=== PATIENT | male | born 1935 | race Caucasian/White ===

== ENCOUNTER → 2016-04-16 | Outpatient (CLI) | payer MEDICARE, OTHER ==
[~2016-04-16] MED LIST: ASPI1TAB69 PO; HYZA50TA2 PO; LEVO50TA4 PO; METO50TA PO; PREV30CA11 PO; SYSTSOL EACH EYE
[2016-04-16 13:55] LABS: BICARBONATE 28.2 MEQ/L (21.0-32.0); POTASSIUM 3.5 MEQ/L (3.5-5.1)
== END ==
LOC: PLAB 09:08
PROVIDERS: ATTEND Family Medicine
DX: E03.9 Hypothyroidism, unspecified (principal); I10 Essential (primary) hypertension
CPT/HCPCS: 36415; 80048; 84443

== ENCOUNTER → 2016-08-13 | Outpatient (CLI) | payer MEDICARE, OTHER | LOC: PLAB 10:37 | PROVIDERS: ATTEND Urology | DX: Z85.46 Personal history of malignant neoplasm of prostate (principal) | CPT/HCPCS: 36415; 84153 ==

== ENCOUNTER → 2016-11-06 | Outpatient (CLI) | payer MEDICARE, OTHER ==
[2016-11-06 13:02] LABS: HEMATOCRIT 42.1 % (39.0-51.0); MEAN CELL VOLUME 89.8 FL (80.0-100.0); MEAN CORPUSCULAR HEMOGLOBIN 29.8 PG (27.0-34.0); MEAN CORPUSCULAR HGB CONC 33.3 % (32.0-36.0); PLATELET COUNT 281 TH/MM3 (150-450); RED BLOOD COUNT 4.69 MIL/MM3 (4.50-5.90); RED CELL DISTRIBUTION WIDTH 14.1 % (11.6-17.2); REVIEW FLAG FINAL; WHITE BLOOD COUNT 6.3 TH/MM3 (4.0-11.0)
[2016-11-06 13:21] LABS: ANION GAP 9 MEQ/L (5-15); AST (GOT) 15 U/L (15-37); BICARBONATE 25.5 MEQ/L (21.0-32.0); BLOOD UREA NITROGEN 19 MG/DL (7-18); CHLORIDE 103 MEQ/L (98-107); GLOMERULAR FILTRATION RATE 54 ML/MIN (>89); GLUCOSE,FASTING 125 MG/DL (74-99); POTASSIUM 3.5 MEQ/L (3.5-5.1); SODIUM (NA) 137 MEQ/L (136-145)
[2016-11-06 13:30] LABS: ALKALINE PHOSPHATASE 51 U/L (45-117); ALT (GPT) 26 U/L (12-78); FREE T4 1.15 NG/DL (0.76-1.46); HDL CHOLESTEROL 34.2 MG/DL (40.0-60.0); LDL CHOLESTEROL 108 MG/DL (0-99); LDL CHOLESTEROL DIRECT 129 MG/DL (0-99); TOTAL BILIRUBIN ADULT 0.6 MG/DL (0.2-1.0)
[2016-11-06 17:56] LABS: HEMOGLOBIN A1a 0.9 %; HEMOGLOBIN A1b 1.9 %; HEMOGLOBIN Ao 84.8 %; HEMOGLOBIN LA1C 2.2 %
== END ==
LOC: PLAB 08:02
PROVIDERS: ATTEND Family Medicine
DX: E78.2 Mixed hyperlipidemia (principal); I10 Essential (primary) hypertension; E03.8 Other specified hypothyroidism; R73.01 Impaired fasting glucose
CPT/HCPCS: 36415; 80053; 80061; 83036; 83721; 84439; 84443; 85027

== ENCOUNTER → 2017-02-19 | Outpatient (CLI) | payer MEDICARE, OTHER ==
[~2017-02-19] MED LIST changes: +ECASA81 PO; -PREV30CA11 PO; +PREV30CA36 PO
== END ==
LOC: PLAB 11:32
PROVIDERS: ATTEND Radiology Radiation Oncology
DX: C61 Malignant neoplasm of prostate (principal)
CPT/HCPCS: 36415; 84153

== ENCOUNTER → 2017-05-26 | Outpatient (CLI) | payer MEDICARE, OTHER ==
[~2017-05-26] MED LIST changes: -ASPI1TAB69 PO
[2017-05-26 10:25] LABS: HEMATOCRIT 41.8 % (39.0-51.0); HEMOGLOBIN 14.5 GM/DL (13.0-17.0); MEAN CELL VOLUME 88.1 FL (80.0-100.0); MEAN CORPUSCULAR HEMOGLOBIN 30.5 PG (27.0-34.0); MEAN CORPUSCULAR HGB CONC 34.7 % (32.0-36.0); MEAN PLATELET VOLUME 8.4 FL (7.0-11.0); PLATELET COUNT 294 TH/MM3 (150-450); RED BLOOD COUNT 4.75 MIL/MM3 (4.50-5.90); RED CELL DISTRIBUTION WIDTH 14.2 % (11.6-17.2); WHITE BLOOD COUNT 7.2 TH/MM3 (4.0-11.0)
[2017-05-26 10:41] LABS: ALBUMIN 3.7 GM/DL (3.4-5.0); AST (GOT) 19 U/L (15-37); BICARBONATE 28.8 MEQ/L (21.0-32.0); BLOOD UREA NITROGEN 19 MG/DL (7-18); CHLORIDE 104 MEQ/L (98-107); CREATININE 1.33 MG/DL (0.60-1.30); GLOMERULAR FILTRATION RATE 52 ML/MIN (>89); GLUCOSE,FASTING 98 MG/DL (74-99); SODIUM (NA) 140 MEQ/L (136-145)
[2017-05-26 10:53] LABS: ALKALINE PHOSPHATASE 52 U/L (45-117); ALT (GPT) 30 U/L (12-78); CHOLESTEROL 212 MG/DL (120-200); CHOLESTEROL/ HDL RATIO 5.28 RATIO; FREE T4 0.99 NG/DL (0.76-1.46); HDL CHOLESTEROL 40.1 MG/DL (40.0-60.0); LDL CHOLESTEROL 144 MG/DL (0-99); LDL CHOLESTEROL DIRECT 167 MG/DL (0-99); TOTAL BILIRUBIN ADULT 0.9 MG/DL (0.2-1.0); TOTAL PROTEIN 7.4 GM/DL (6.4-8.2); TRIGLYCERIDES 139 MG/DL (42-150)
[2017-05-26 17:15] LABS: HEMOGLOBIN A1C 5.6 % (4.3-6.0)
== END ==
LOC: PLAB 08:40
PROVIDERS: ATTEND Family Medicine
DX: E78.2 Mixed hyperlipidemia (principal); I10 Essential (primary) hypertension; E03.8 Other specified hypothyroidism; R73.01 Impaired fasting glucose
CPT/HCPCS: 36415; 80053; 80061; 83036; 83721; 84439; 84443; 85027

== ENCOUNTER 2017-06-24 13:08 | Inpatient (IN) | payer MEDICARE, OTHER ==
[2017-06-24] VITALS (9 sets, daily range): BP systolic 103–148; BP diastolic 53–76; PULSE 67–87; RESP 18–20; TEMP 97.7–98; O2SAT 95–97
[~2017-06-24 13:08] MED LIST changes: +IOHEXOL 350 MG/ML 100 ML BTL (for Cath Lab) OTHER ONE
[2017-06-24] MEDS ORDERED: ASPIRIN 81 MG CHEW TAB PO ONE ×2 (13:30→18:00)
[2017-06-24] MEDS ORDERED: SODIUM CHLORIDE 0.9% FLUSH 10 ML FLUSH IVF PRN (13:30)
[2017-06-24] MEDS ORDERED: HEPARIN-D5W 25,000 U/250 ML 250 ML IV PRN (13:30)
[2017-06-24] MEDS ORDERED: SODIUM CHLORID 0.9% 500 ML INJ 500 ML IV ONE (13:30)
[2017-06-24] MEDS ORDERED: NITROGLYCERIN 2% OINT 1 GM PACKET TOP ONE (13:30)
[2017-06-24] MEDS ORDERED: HEPARIN SODIUM - IV 10,000 UNITS/10 ML VIAL IV PUSH ONE (13:30)
[2017-06-24 13:36] LABS: AUTOMATED NEUTROPHIL # 7.5 TH/MM3 (1.8-7.7); BASOPHIL # 0.1 TH/MM3 (0-0.2); BASOPHIL % 0.8 % (0.0-2.0); EOSINOPHIL # 0.3 TH/MM3 (0-0.4); EOSINOPHIL % 3.3 % (0.0-4.0); HEMATOCRIT 42.4 % (39.0-51.0); HEMOGLOBIN 14.3 GM/DL (13.0-17.0); LYMPH % 17.2 % (9.0-44.0); LYMPHOCYTE # 1.7 TH/MM3 (1.0-4.8); MEAN CELL VOLUME 88.2 FL (80.0-100.0); MEAN CORPUSCULAR HEMOGLOBIN 29.7 PG (27.0-34.0); MEAN CORPUSCULAR HGB CONC 33.6 % (32.0-36.0); MEAN PLATELET VOLUME 8.4 FL (7.0-11.0); MONO % 4.8 % (0.0-8.0); MONOCYTE # 0.5 TH/MM3 (0-0.9); NEUT % 73.9 % (16.0-70.0); PLATELET COUNT 285 TH/MM3 (150-450); RED BLOOD COUNT 4.81 MIL/MM3 (4.50-5.90); RED CELL DISTRIBUTION WIDTH 13.1 % (11.6-17.2); WHITE BLOOD COUNT 10.1 TH/MM3 (4.0-11.0)
--- NOTE | 2017-06-24 13:38 | PD ---
HPI Chief Complaint: Chest Pain Time Seen by Provider: 13:22 Travel History International Travel<30 days: No Contact w/Intl Traveler<30days: No Traveled to known affect area: No History of Present Illness HPI 81-year-old male patient with history of hypertension, irregular heartbeats, carotid stenosis, presents to the ER today because he states that he had been working outside and at around noon started having substernal chest discomfort which she states feels pressure-like, and was a 7 out of 10. He states that he took a baby aspirin and the chest discomfort is now a 3 out of 10. He denies any nausea, shortness of breath, or other symptoms. He does not think that the pain radiates anywhere. He has not had similar chest pains in the past. He is a patient of Dr. Mcdonnell. Modifying Factors: None Associated Signs & Symptoms: Chest pains Risk Factors: Hypertension, irregular heartbeat PFSH Past Medical History Cerebrovascular Accident: Yes Diminished Hearing: Yes (hearing aides) Gastrointestinal Disorders: Yes (GERD) GERD: Yes Genitourinary: Yes (HEMATURIA) Hepatitis: Yes (HEP A) Hypertension: Yes Immune Disorder: No Radiation Therapy: No Sleep Apnea: Yes Ulcer: Yes Tetanus Vaccination: Unknown Influenza Vaccination: Yes (2016) Past Surgical History Cholecystectomy: Yes Prostatectomy: Yes Other Surgery: Yes (PROSTATE REMOVAL ) Social History Alcohol Use: No Tobacco Use: No Substance Use: No Allergies-Medications (Allergen,Severity, Reaction): Coded Allergies: penicillin G (Verified Allergy, Severe, CONVULSIONS, 02/23/17) codeine (Verified Allergy, Intermediate, Hallucinations, 02/23/17) Reported Meds & Prescriptions Reported Meds & Active Scripts Active Reported Aspirin DR (Aspirin) 81 Mg Tabdr 81 Mg PO DAILY Levothyroxine (Levothyroxine Sodium) 50 Mcg Tab 50 Mcg PO DAILY Prevacid (Lansoprazole) 30 Mg Capdr 1 Cap PO DAILY Hyzaar (Losartan-Hydrochlorothiazide) 50-12.5 Mg Tab 1 Tab PO BID Metoprolol Tartrate 50 Mg Tab 1 Tab PO BID Review of Systems Except as stated in HPI: all other systems reviewed are Neg Physical Exam Narrative GENERAL: Well-developed elderly male patient currently in mild distress. Awake and oriented 3. SKIN: Focused skin assessment warm/dry. HEAD: Atraumatic. Normocephalic. EYES: Pupils equal and round. No scleral icterus. No injection or drainage. ENT: No nasal bleeding or discharge. Mucous membranes pink and moist. NECK: Trachea midline. No JVD. Supple. CARDIOVASCULAR: Regular rate and rhythm. No murmur appreciated. Pulses are present and equal bilaterally. RESPIRATORY: No accessory muscle use. Clear to auscultation. Breath sounds equal bilaterally. GASTROINTESTINAL: Abdomen soft, non-tender, nondistended. Hepatic and splenic margins not palpable. MUSCULOSKELETAL: No obvious deformities. No clubbing. No cyanosis. No edema. NEUROLOGICAL: Awake and alert. No obvious cranial nerve deficits. Motor grossly within normal limits. Normal speech. PSYCHIATRIC: Appropriate mood and affect; insight and judgment normal. Data Data Last Documented VS Vital Signs Date Time Temp Pulse Resp B/P (MAP) Pulse Ox O2 Delivery O2 Flow Rate FiO2 06/24/17 13:29 96 06/24/17 13:17 97.7 87 20 148/76 (100) Orders Orders Electrocardiogram (06/24/17 13:) Ckmb (Isoenzyme) Profile (06/24/17 13:22) Complete Blood Count With Diff (06/24/17 13:22) Comprehensive Metabolic Panel (06/24/17 13:22) Magnesium (Mg) (06/24/17 13:22) Prothrombin Time / Inr (Pt) (06/24/17 13:) Act Partial Throm Time (Ptt) (06/24/17 13:22) Troponin I (06/24/17 13:22) Ecg Monitoring (06/24/17 13:22) Bilateral Bp Monitoring (06/24/17 13:22) Iv Access Insert/Monitor (06/24/17 13:22) Oximetry (06/24/17 13:22) Oxygen Administration (06/24/17 13:22) Aspirin Chew (Aspirin Chew) (06/24/17 13:30) Nitroglycerin 2% Oint (Nitroglycerin 2% (06/24/17 13:30) Sodium Chloride 0.9% Flush (Ns Flush) (06/24/17 13:30) Sodium Chlorid 0.9% 500 Ml Inj (Ns 500 M (06/24/17 13:30) Chest, Pa & Lat (06/24/17 13:22) Heparin Inj (Heparin Inj) (06/24/17 13:30) Heparin Inj (Heparin Inj) (06/24/17 19:30) Heparin Inj (Heparin Inj) (06/24/17 19:30) Heparin-D5w 25,000 U/250 Ml (Heparin-D5w (06/24/17 13:30) Act Partial Throm Time (Ptt) (06/24/17 13:28) Cbc No Diff, Includes Plts (06/24/17 13:28) Cbc No Diff, Includes Plts (06/27/17 06:00) Act Partial Throm Time (Ptt) (06/24/17 20:28) Occult Blood (Hemoccult) Stool (06/24/17 13:28) Admit Order (Ed Use Only) (06/24/17 13:28) MDM Medical Decision Making Medical Screen Exam Complete: Yes Emergency Medical Condition: Yes Medical Record Reviewed: Yes Interpretation(s) EKG shows normal sinus rhythm at a rate of [address] elevations which are concerning for possible cardiac issues in 2 and aVF. I do not see any significant ST depressions. EKG compared to the one from 2014, last on record here, and there are changes in these 2 regions. Differential Diagnosis Non-ST elevation PR versus unstable angina versus ST elevation PR versus GERD Narrative Course Patient was given aspirin in the ER, nitroglycerin, and heparin was initiated. I have attempted to call , patient's qual field manager, but was told that he is currently in a procedure, and was asked to call on-call qual field manager. Case was discussed with Dr. Cooper who states that he does not want me to call a STEMI alert, but does want the patient to be immediately sent to [facility] for catheterization. Emergency transport called. Patient admitted to his service. Going straight to [facility]. Diagnosis Primary Impression: Unstable angina Admitting Information Admitting Physician Requests: it Mitchel El MD June 24, 2017 13:38
[2017-06-24 13:46] LABS: CHLORIDE 105 MEQ/L (98-107); SODIUM (NA) 140 MEQ/L (136-145)
[2017-06-24 13:50] LABS: CALCIUM 9.1 MG/DL (8.5-10.1)
[2017-06-24 13:51] LABS: ALBUMIN 3.7 GM/DL (3.4-5.0); BICARBONATE 24.1 MEQ/L (21.0-32.0); BLOOD UREA NITROGEN 19 MG/DL (7-18); GLUCOSE,RANDOM 112 MG/DL (74-106); MAGNESIUM 2.2 MG/DL (1.5-2.5)
[2017-06-24 13:52] LABS: PROTHROMBIN TIME - PATIENT 10.6 SEC (9.8-11.6)
[2017-06-24 13:53] LABS: ALT (GPT) 33 U/L (12-78)
[2017-06-24 13:54] LABS: AST (GOT) 20 U/L (15-37); GLOMERULAR FILTRATION RATE 45 ML/MIN (>89)
[2017-06-24 13:55] LABS: TOTAL BILIRUBIN ADULT 0.7 MG/DL (0.2-1.0); TOTAL PROTEIN 7.4 GM/DL (6.4-8.2)
[2017-06-24 13:56] LABS: ALKALINE PHOSPHATASE 52 U/L (45-117)
[2017-06-24 13:59] LABS: TROPONIN I LESS THAN 0.02 NG/ML (0.02-0.05)
[2017-06-24] MEDS ORDERED: MIDAZOLAM HCL 5 MG/5 ML VIAL ONE ×3 (14:29→16:09)
[2017-06-24] MEDS ORDERED: CANGRELOR TETRASODIUM 50,000 MCG VIAL ONE (16:08)
[2017-06-24] MEDS ORDERED: TICAGRELOR 90 MG TAB PO ONE (16:27)
--- NOTE | 2017-06-24 16:46 | CATHPROC ---
[employer] HIS Report Study Information Study Number Admission Scheduled Start Study Start [id number] Jun 24 2017 1:31PM 06/24/2017 Jun 24 2017 2:20PM [place] [facility] Cardiac Catheterization Admit Source Facility Department Emergency department [facility] - Labeler Physician and Clinical Staff Initial Azar Alonzo Architectural Draftsman Trenton Granado,RN Recorder Kelly Urbano ,RT(R) Scrub Divine Ballesteros RCIS TECH2 Procedures Performed Procedure Location (Site) Vessel Name Angiogram LV LV Ventricle Coronary Angiograms LCA Left Coronary Coronary Angiograms RCA Right Coronary Drug Eluting Inflatio RCA Mid Right Coronary Drug Eluting Inflatio RCA Prox Right Coronary L Heart Cath PTCA RCA Mid Right Coronary Wire insertion Fem Art (right) Femoral Art Equipment Time Aviation Consultant Description Size Mfg Part Number Used/Scraped WIRE, BALANCE MIDDLEWEIGHT [id number] 15:08 [facility] [facility] 190CM Used 190CM *[id number] TRANSDUCER, TRUWAVE [id number] 14:22 WALLER ALATORRE * Used W/STOCKCOCK *[id number] *[id number] *[id number] 16:17 [facility] MED[facility] ANGIOSEAL, FR6 VIP FR 6 Used *[id number] 14:22 [employer] INDUSTRIES PACK, CCL CUSTOM * Used *[id number] 14:22 [employer] PACER PEN, SKIN DUAL W/ RULER * Used *[id number] 15:14 [employer] BALLOON, 2.5 X 15MM EUPHORA 15MM Used *[id number] BALLOON, 3.5 X 15MM NC [id number] 15:32 [employer]TR[employer]IC 15MM Used EUPHORA *[id number] BALLOON, 4.0 X 8MM NC [id number] 15:44 [employer] 8MM Used EUPHORA *[id number] 14:59 [employer] JL 4.0 DXTERITY CATHETER FR 5 Used *[id number] PIG ANG 145 DXTERITY [id number] 14:39 [employer]IC FR 5 Used CATHETER *[id number] 15:21 [employer] STENT, 3.0 38MM PIPE 3.0 38MM [id number] Used 15:47 [employer] STENT, 3.5 22MM PIPE 3.5 22MM [id number] 15:17 [employer] MEDICAL 30 BEREKET INDEFLATOR Used *[id number] 15:09 [employer] MEDICAL SHEATH, FR6.5 PRELUDE 11CM FR 6.5 038ACT Used *[id number] 14:57 [employer] MEDICAL WIRE, 3MMJ .035 180CM 180CM Used *[id number] 14:22 [employer] MEDICAL WIRE, 3MMJ .035 180CM 180CM Used *[id number] PROBE COVER, STERILE [id number] 14:22 [email or web address] MEDICAL * Used ULTRASOUND W/ GEL *[id number] 14:22 NAMIC MANIFOLD, 4 PORT * Used *[id number] 14:22 NAMIC TUBING, HIGH PRESSURE 48" 48" Used *[id number] 14:22 [employer] OMNIPAQUE, 350 MG, 150ML 150ML [id number] Used 16:12 [employer] OMNIPAQUE, 350 MG, 50ML 50ML [id number] Used [id number] 14:22 [employer] BLANKET,WARM AIR CCL * Used *[id number] 14:22 [employer]ICAL SHEATH, FR5 TERUMO (10CM) FR 5 Used *[id number] Equipment Model, Serial, Lot Number and Expiration Data Description Model Number Serial Number Lot Number Expiration Da te BALLOON, 3.5 X 15MM NC [id number] 03-21-2019 EUPHORA BALLOON, 4.0 X 8MM NC EUPHORA [id number] 12-12-2018 PIG ANG 145 DXTERITY CATHETER [id number] 03-18-2019 STENT, 3.0 38MM PIPE [id number] 03-20-2019 STENT, 3.5 22MM PIPE [id number] 04-02-2018 History: Allergies Allergy Reaction codeine Hallucinations Penicillin CONVULSIONS penicillin G CONVULSIONS History: Risk Factors Family History of Hypertension Dyslipidemia Previous SD Previous Heart Failure Premature CAD Yes Yes No No No Prior Valve Prior PCI Prior CABG Surgery No No No Cerebrovascular Peripheral Artery Chronic Lung On Dialysis Diabetes Disease Disease Disease No No No No No History: Other Current Smoker No Labs Hgb (g/dl) Hct (%) RBC (MIL/MM3) WBC (l/cumm) Platelets (thousands) 11.60-17.00 35.00-51.00 4.00-5.90 4.00-11.00 150.00-450.00 14.3 42.4 4.8 10.1 285 Glucose (mg/dl) BUN (mg/dl) Creatinine (mg/dl) BUN:Creatinine (1:x) 74.00-106.00 7.00-18.00 0.50-1.30 10.00-20.00 112 19 1.5 12.7 Na (meq/l) K (meq/l) 136.00-145.00 3.50-5.10 140 3.4 INR (PTT:PT) 0.90-1.10 1 Troponin I (ng/ml) 0.02-0.05 0.02 Medication Medication Total Dose (Bolus/Oral) Medication Total Dosage/Unit 1% XYLOCAINE 20 mL BRILLINTA 180 mg FENTANYL 150 mcg HEPARIN 9000 units NTG (IC) 200 mcg VERSED 12 mg Medications (Bolus/Oral) Medication Time Given Dosage/Unit Administered By Reason VERSED 06/24/2017 2:50:30 PM 1 mg Loy, Trenton 1 mg VERSED given in lab by Trenton Granado RN in Left Antecubital via Peripheral IV. Ordered by Azar Murray. 1% XYLOCAINE 06/24/2017 2:53:25 PM 20 mL Azar Cooper 20 mL 1% XYLOCAINE given in lab by Azar Cooper in Right Groin via Subcutaneous. Ordered by Azar Murray. VERSED 06/24/2017 2:58:04 PM 2 mg Loy, Trenton 2 mg VERSED given in lab by Trenton Granado RN in Left Antecubital via Peripheral IV. Ordered by Azar Murray. VERSED 06/24/2017 3:05:00 PM 2 mg Loy, Trenton 2 mg VERSED given in lab by Trenton Granado RN via Peripheral IV. Ordered by Azar Cooper. HEPARIN 06/24/2017 3:05:12 PM 8000 units Loy, Trenton 8000 units HEPARIN given in lab by Trenton Granado RN in Left Antecubital via Peripheral IV. Ordered by Azar Cooper. NTG (IC) 06/24/2017 3:09:54 PM 100 mcg Azar Cooper 100 mcg NTG (IC) given in lab by Azar Cooper via Intra-coronary. Ordered by Azar Cooper. NTG (IC) 06/24/2017 3:27:04 PM 100 mcg Azar Cooper 100 mcg NTG (IC) given in lab by Azar Cooper via Intra-coronary. Ordered by Azar Cooper. VERSED 06/24/2017 3:28:18 PM 2 mg Loy, Trenton 2 mg VERSED given in lab by Trenton Granado RN in Left Antecubital via Peripheral IV. Ordered by Azar Murray. FENTANYL 06/24/2017 3:32:00 PM 50 mcg Loy, Trenton 50 mcg FENTANYL given in lab by Trenton Granado RN in Left Antecubital via Peripheral IV. Ordered by Azar Gomez. VERSED 06/24/2017 3:37:23 PM 2 mg Loy, Trenton 2 mg VERSED given in lab by Trenton Granado RN in Left Antecubital via Peripheral IV. Ordered by Azar Murray. FENTANYL 06/24/2017 3:38:37 PM 25 mcg Loy, Trenton 25 mcg FENTANYL given in lab by Trenton Granaod RN in Left Antecubital via Peripheral IV. Ordered by Azar Gomez. FENTANYL 06/24/2017 3:48:53 PM 25 mcg Loy, Trenton 25 mcg FENTANYL given in lab by Trenton Granado RN in Left Antecubital via Peripheral IV. Ordered by Azar Gomez. VERSED 06/24/2017 3:49:58 PM 1 mg Loy, Trenton 1 mg VERSED given in lab by Trenton Granado RN via Peripheral IV. Ordered by Azar Cooper. VERSED 06/24/2017 3:52:16 PM 1 mg Loy, Trenton 1 mg VERSED given in lab by Trenton Granado RN in Left Antecubital via Peripheral IV. Ordered by Azar Murray. VERSED 06/24/2017 4:03:00 PM 1 mg Loy, Trenton 1 mg VERSED given in lab by Trenton Granado RN in Left Antecubital via Peripheral IV. Ordered by Azar Murray. FENTANYL 06/24/2017 4:06:05 PM 50 mcg Loy, Trenton 50 mcg FENTANYL given in lab by Trenton Granado RN via Peripheral IV. Ordered by Azar Cooper. HEPARIN 06/24/2017 4:09:04 PM 1000 units Trenton Granado 1000 units HEPARIN given in lab by Trenton Granado RN via Peripheral IV. Ordered by Azar Cooper. BRILLINTA 06/24/2017 4:30:10 PM 180 mg Trenton Granado 180 mg BRILLINTA given in lab by Trenton Granado RN in Per mouth via Oral. Ordered by Azar Cooper. Medication (Drip) Medication Time Given Dosage/Unit Concentration/Unit Diluent (ml) Solution IV Solutions 06/24/2017 2:29:28 PM 50 mL (IV) NaCl .9 Patient arrived on IV Solutions in Left Antecubital via Peripheral IV. Pump/Drip Flow using NaCl .9. KENGREAL BOLUS 06/24/2017 4:14:35 PM 17 mL 17 mL KENGREAL BOLUS given in lab by Trenton Granado RN via Peripheral IV. Ordered by Azar Cooper. KENGREAL DRIP 06/24/2017 4:15:00 PM 4 mcg/kg/min 50 mg 250 NaCl .9 4 mcg/kg/min KENGREAL DRIP given in lab by Trenton Granado RN via Peripheral IV. Pump/Drip Flow = 137.7 6 ml/hr using NaCl .9 with a concentration of 50 mg in 250 ml. Ordered by Azar Cooper. Initial Case Assessment Cardiovascular HR NIBP Chest Pain 77 141/80 0 Edema Present Skin color Skin None Normal Warm Dry Neurological State Oriented to time-place- Alert Moves all extremities person Respiration - General Respiration Rate SpO2 (%) (B/min) 18 96 Final Case Assessment Cardiovascular HR NIBP Chest Pain 77 141/80 0 Edema Present Skin color Skin None Normal Warm Dry Neurological State Oriented to time-place- Alert Moves all extremities person Respiration - General Respiration Rate SpO2 (%) (B/min) 18 96 Chronological Log Time Study Chronological Log 14:26:18 Patient Name, D.O.B, / Armband Verified By R.N. 14:26:19 Patient arrived via Bed. 14:29:15 Consent signed by the physician and the patient and verified by the Labeler staff. 14:29:17 Pre-op and post- op instructions given; patient acknowledges understanding of instruction s. 14:29:18 Verbal Stimulation=2 Physical Stimulation=2 Airway=2 Respiration=2 TOTAL=8. (0=absent, 1= limited, 2=present) 14:: Patient has been NPO for More than 6Hrs. 14:: Skin Breakdown- none per patient 14:: Patient Warmer Placed on the Table. 14:: Khalida Prominences Protected 14:: A # 18 IV was noted in the Antecubital (left). Grade = 0 14:: A # 20 IV was noted in the Hand (left). Grade = 0 14:: Patient arrived on IV Solutions in Left Antecubital via Peripheral IV. Pump/Drip Flow using NaCl .9. :: History and physical on the chart or being dictated. Assessment: Initial Case, HR=77 BPM, EOHU=339/80 mmhg, Chest Pain=0, Edema=None, Color=Normal, Skin = Warm, Dry 14:29:30 Neurological: State=Alert, Ox3, COLINDRES Respiration: Resp=18 B/min, SpO2=96 % Vitals capture started with the following parameters, Patient=Adult, Interval=5 min, Initial Pr eqyeoy=691 mmHg, 14:33:19 Deflation Rate=5 mmHg, Cuff placed on Left Arm 14:34:08 HR=84 bpm, SWYX=449/80 mmhg, SpO2=95.0 %, Resp=18 B/min, Pain=0, Donovan=10, Lyon=2 14:35:32 Reference ECG taken 14:39:01 HR=75 bpm, NSPS=405/75 mmhg, SpO2=97.0 %, Resp=30 B/min, Pain=0, Donovan=10, Lyon=2 14:41:56 MD paged 14:42:50 Bilateral groins prepped with 2% chlorhexidine, and draped after a 3 minute waiting time. 14:44:04 HR=83 bpm, JASC=832/71 mmhg, SpO2=96.0 %, Resp=24 B/min, Pain=0, Donovan=10, Lyon=2 14:46:16 Pressure channel 1 zeroed. 14:46:55 MD arrived. 14:49:05 HR=80 bpm, TBOJ=901/79 mmhg, SpO2=97.0 %, Resp=14 B/min, Pain=0, Donovan=10, Lyon=2 14:50:30 1 mg VERSED given in lab by Trenton Granado RN in Left Antecubital via Peripheral IV. Ordered by Azar Cooper. Time Out. Correct patient, correct procedure, correct physician, power injector loaded with con trast with surgical team 14:52:24 present. Time Out Concurred by MD and individual staff in procedure. 14:53:08 Case Start 14:53:25 20 mL 1% XYLOCAINE given in lab by Azar Cooper in Right Groin via Subcutaneous. Ordered by Azar Cooper. 14:54:08 HR=81 bpm, RRSN=027/69 mmhg, SpO2=96.0 %, Resp=14 B/min, Pain=0, Donovan=10, Lyon=2 14:54:36 Access site was Right Femoral Artery. With US 14:55:22 A SHEATH, FR5 TERUMO (10CM) FR 5 was advanced into the Fem Art (right) using the Percutaneo us technique. A AR MOD INFINITI CATHETER FR 5 was advanced over a wire. OMNIPAQUE, 350 MG, 150ML 150ML was us ed for 14:56:58 injections. Recorded Pressure: Ao, HR=78, Condition=Condition 1 14:57:49 (Aorta) Ao 112/57/81 14:58:04 2 mg VERSED given in lab by Trenton Granado RN in Left Antecubital via Peripheral IV. Ordered by Azar Cooper. 14:58:20 The RCA was injected and visualized at various angles. OMNIPAQUE, 350 MG, 150ML 150ML used . 14:59:05 HR=81 bpm, RCJE=435/63 mmhg, SpO2=96.0 %, Resp=32 B/min, Pain=0, Donovan=10, Lyon=2 After removing the current catheter a JL 4.0 DXTERITY CATHETER FR 5 was advanced over a WIRE, 3 MMJ .035 180CM 14:59:05 180CM. 14:59:28 Activated Clotting Time Drawn 15:00:45 Catheter was removed A JL 5.0 INFINITI CATHETER FR 5 was advanced over a wire. OMNIPAQUE, 350 MG, 150ML 150ML was us ed for 15:01:26 injections. 15:02:19 ACT (Normal Range 90-180) = 145 15:02:28 The LCA was injected and visualized at various angles. OMNIPAQUE, 350 MG, 150ML 150ML used . 15:04:02 HR=78 bpm, CSPG=006/64 mmhg, SpO2=94.0 %, Resp=23 B/min, Pain=0, Donovan=10, Lyon=2 15:04:33 Catheter was removed 15:05:00 2 mg VERSED given in lab by Trenton Granado RN via Peripheral IV. Ordered by Azar Cooper. 15:05:12 8000 units HEPARIN given in lab by Trenton Granado RN in Left Antecubital via Peripheral IV. Ordered by Azar Cooper. A SHEATH, FR6.5 PRELUDE 11CM FR 6.5 was exchanged in the Fem Art (right). This was necessary in order to 15:08:29 accomodate a larger catheter. 15:08:51 A AR 1 GUIDE CATHETER FR 6 was advanced over a wire. OMNIPAQUE, 350 MG, 150ML 150ML was use d for injections. 15:09:05 HR=78 bpm, KUGV=617/59 mmhg, SpO2=95.0 %, Resp=18 B/min, Pain=0, Donovan=10, Lyon=2 15:09:54 100 mcg NTG (IC) given in lab by Azar Cooper via Intra-coronary. Ordered by Tanner Cooper. 15:10:06 Activated Clotting Time Drawn 15:11:42 A WIRE, BALANCE MIDDLEWEIGHT 190CM 190CM was inserted via Fem Art (right). 15:12:35 Interventional wire has crossed the lesion 15:14:02 HR=81 bpm, JETL=949/55 mmhg, SpO2=95.0 %, Resp=12 B/min, Pain=0, Donovan=10, Lyon=2 A BALLOON, 2.5 X 15MM EUPHORA 15MM was inserted over WIRE, BALANCE MIDDLEWEIGHT 190CM 190CM via the 15:15:35 Fem Art (right). 15:16:14 ACT (Normal Range 90-180) = 301 A BALLOON, 2.5 X 15MM EUPHORA 15MM over a WIRE, BALANCE MIDDLEWEIGHT 190CM 190CM in the RCA Mid was 15:16:36 inflated using a 30 BEREKET INDEFLATOR at 17 bereket for 22 sec. A BALLOON, 2.5 X 15MM EUPHORA 15MM over a WIRE, BALANCE MIDDLEWEIGHT 190CM 190CM in the RCA Mid was 15:17:11 inflated using a 30 BEREKET INDEFLATOR at 17 bereket for 9 sec. A BALLOON, 2.5 X 15MM EUPHORA 15MM over a WIRE, BALANCE MIDDLEWEIGHT 190CM 190CM in the RCA Mid was 15:17:23 inflated using a 30 BEREKET INDEFLATOR at 17 bereket for 10 sec. A BALLOON, 2.5 X 15MM EUPHORA 15MM over a WIRE, BALANCE MIDDLEWEIGHT 190CM 190CM in the RCA Mid was 15:17:53 inflated using a 30 BEREKET INDEFLATOR at 17 bereket for 12 sec. 15:19:03 HR=77 bpm, ITRU=531/61 mmhg, SpO2=95.0 %, Resp=16 B/min, Pain=0, Donovan=10, Lyon=2 15:19:20 Balloon Removed. A STENT, 3.0 38MM PIPE 3.0 38MM was advanced through a AR 1 GUIDE CATHETER FR 6 over a WIRE, BA DIEGO 15:20:50 MIDDLEWEIGHT 190CM 190CM. A STENT, 3.0 38MM PIPE 3.0 38MM was deployed using a 30 BEREKET INDEFLATOR at 12 atmospheres for 48 seconds in 15:23:03 the RCA Mid. 15:24:02 HR=80 bpm, UGKS=102/62 mmhg, SpO2=97.0 %, Resp=13 B/min, Pain=0, Donovan=10, Lyon=2 15:24:13 Re-inflated the stent balloon in the RCA Mid to 18 BEREKET for 45 seconds. 15:26:12 Re-inflated the stent balloon in the RCA Mid to 21 BEREKET for 40 seconds. 15:26:47 Delivery device removed 15:27:04 100 mcg NTG (IC) given in lab by Azar Cooper via Intra-coronary. Ordered by Tanner Cooper. 15:28:18 2 mg VERSED given in lab by Trenton Granado, RN in Left Antecubital via Peripheral IV. Ordered by Azar Cooper. 15:29:40 HR=72 bpm, HNDU=462/88 mmhg, SpO2=99.0 %, Resp=23 B/min, Pain=0, Donovan=10, Lyon=2 15:32:00 50 mcg FENTANYL given in lab by Trenton Granado RN in Left Antecubital via Peripheral IV. Ord ered by Azar Cooper. A BALLOON, 3.5 X 15MM NC EUPHORA 15MM was inserted over WIRE, BALANCE MIDDLEWEIGHT 190CM 190CM via 15:33:57 the Fem Art (right). 15:34:06 HR=74 bpm, AAJF=544/60 mmhg, SpO2=96.0 %, Resp=21 B/min, Pain=0, Donovan=10, Lyon=2 A BALLOON, 3.5 X 15MM NC EUPHORA 15MM over a WIRE, BALANCE MIDDLEWEIGHT 190CM 190CM in the RCA Mid 15:35:59 was inflated using a 30 BEREKET INDEFLATOR at 25 bereket for 46 sec. A BALLOON, 3.5 X 15MM NC EUPHORA 15MM over a WIRE, BALANCE MIDDLEWEIGHT 190CM 190CM in the RCA Mid 15:37:22 was inflated using a 30 BEREKET INDEFLATOR at 12 bereket for 9 sec. 15:37:23 2 mg VERSED given in lab by Trenton Granado RN in Left Antecubital via Peripheral IV. Ordered by Azar Cooper. A BALLOON, 3.5 X 15MM NC EUPHORA 15MM over a WIRE, BALANCE MIDDLEWEIGHT 190CM 190CM in the RCA Mid 15:37:47 was inflated using a 30 BEREKET INDEFLATOR at 12 bereket for 8 sec. 15:38:37 25 mcg FENTANYL given in lab by Trenton Granado RN in Left Antecubital via Peripheral IV. Ord ered by Azar Cooper. 15:38:45 Balloon Removed. 15:39:08 HR=65 bpm, NVKD=412/52 mmhg, SpO2=93.0 %, Resp=13 B/min, Pain=0, Donovan=10, Lyon=2 A BALLOON, 4.0 X 8MM NC EUPHORA 8MM was inserted over WIRE, BALANCE MIDDLEWEIGHT 190CM 190CM vi a the 15:41:20 Fem Art (right). A BALLOON, 4.0 X 8MM NC EUPHORA 8MM over a WIRE, BALANCE MIDDLEWEIGHT 190CM 190CM in the RCA Mi d was 15:43:33 inflated using a 30 BEREKET INDEFLATOR at 12 bereket for 12 sec. 15:44:07 HR=70 bpm, JTNZ=123/60 mmhg, SpO2=88.0 %, Resp=19 B/min, Pain=0, Donovan=10, Lyon=2 A BALLOON, 4.0 X 8MM NC EUPHORA 8MM over a WIRE, BALANCE MIDDLEWEIGHT 190CM 190CM in the RCA Mi d was 15:44:18 inflated using a 30 BEREKET INDEFLATOR at 10 bereket for 14 sec. 15:44:41 Balloon Removed. A STENT, 3.5 22MM PIPE 3.5 22MM was advanced through a AR 1 GUIDE CATHETER FR 6 over a WIRE, BA DIEGO 15:47:12 MIDDLEWEIGHT 190CM 190CM. A STENT, 3.5 22MM PIPE 3.5 22MM was deployed using a 30 BEREKET INDEFLATOR at 13 atmospheres for 28 seconds in 15:48:46 the RCA Prox. 15:48:53 25 mcg FENTANYL given in lab by Trenton Granado RN in Left Antecubital via Peripheral IV. Ord ered by Azar Cooper. 15:49:10 HR=79 bpm, OGWZ=251/58 mmhg, SpO2=96.0 %, Resp=15 B/min, Pain=0, Donovan=10, Lyon=2 15:49:42 Re-inflated the stent balloon in the RCA Prox to 18 BEREKET for 25 seconds. 15:49:58 1 mg VERSED given in lab by Trenton Granado RN via Peripheral IV. Ordered by Azar Cooper. 15:50:35 Re-inflated the stent balloon in the RCA Prox to 14 BEREKET for 26 seconds. 15:51:33 Delivery device removed 15:52:16 1 mg VERSED given in lab by Trenton Granado RN in Left Antecubital via Peripheral IV. Ordered by Azar Cooper. 15:54:11 HR=71 bpm, NIBP=98/61 mmhg, SpO2=92.0 %, Resp=18 B/min, Pain=0, Donovan=10, Lyon=2 A BALLOON, 3.5 X 15MM NC EUPHORA 15MM was inserted over WIRE, BALANCE MIDDLEWEIGHT 190CM 190CM via 15:55:35 the Fem Art (right). A BALLOON, 3.5 X 15MM NC EUPHORA 15MM over a WIRE, BALANCE MIDDLEWEIGHT 190CM 190CM in the RCA Mid 15:56:31 was inflated using a 30 BEREKET INDEFLATOR at 25 bereket for 20 sec. A BALLOON, 3.5 X 15MM NC EUPHORA 15MM over a WIRE, BALANCE MIDDLEWEIGHT 190CM 190CM in the RCA Mid 15:57:06 was inflated using a 30 BEREKET INDEFLATOR at 25 bereket for 18 sec. A BALLOON, 3.5 X 15MM NC EUPHORA 15MM over a WIRE, BALANCE MIDDLEWEIGHT 190CM 190CM in the RCA Mid 15:57:42 was inflated using a 30 BEREKET INDEFLATOR at 25 bereket for 20 sec. A BALLOON, 3.5 X 15MM NC EUPHORA 15MM over a WIRE, BALANCE MIDDLEWEIGHT 190CM 190CM in the RCA Mid 15:58:09 was inflated using a 30 BEREKET INDEFLATOR at 25 bereket for 15 sec. A BALLOON, 3.5 X 15MM NC EUPHORA 15MM over a WIRE, BALANCE MIDDLEWEIGHT 190CM 190CM in the RCA Mid 15:58:33 was inflated using a 30 BEREKET INDEFLATOR at 25 bereket for 10 sec. 15:59:08 HR=69 bpm, DSLL=203/61 mmhg, SpO2=98.0 %, Resp=11 B/min, Pain=0, Donovan=10, Lyon=2 16:03:00 1 mg VERSED given in lab by Trenton Granado RN in Left Antecubital via Peripheral IV. Ordered by Azar Cooper. 16:04:11 HR=64 bpm, HRGT=832/60 mmhg, PdS1=020.0 %, Resp=17 B/min, Pain=0, Donovan=10, Lyon=2 16:06:05 50 mcg FENTANYL given in lab by Trenton Granado RN via Peripheral IV. Ordered by Juanito Cooper. 16:07:00 ACT (Normal Range 90-180) = 271 A BALLOON, 3.5 X 15MM NC EUPHORA 15MM over a WIRE, BALANCE MIDDLEWEIGHT 190CM 190CM in the RCA Mid 16:07:03 was inflated using a 30 BEREKET INDEFLATOR at 18 bereket for 120 sec. 16:08:15 Balloon Removed. 16:09:04 1000 units HEPARIN given in lab by Trenton Granado RN via Peripheral IV. Ordered by Azar Cooper. 16:09:10 HR=67 bpm, QXSM=340/61 mmhg, Resp=13 B/min, Pain=0, Donovan=10, Lyon=2 16:09:19 Wire removed A PIG ANG 145 DXTERITY CATHETER FR 5 was advanced over a wire. OMNIPAQUE, 350 MG, 150ML 150ML w as used 16:09:51 for injections. Recorded Pressure: LV, HR=65, Condition=Condition 1 16:10:38 (Left Ventricle) LV 102/17/22 16:11:39 The LV was injected at 10 cc/sec for a total of 20. OMNIPAQUE, 350 MG, 50ML 50ML used. Recorded Pressure: LV, Ao, HR=68, Condition=Condition 1 16:13:07 (Left Ventricle) LV 95/12/19, (Aorta) Ao 97/54/73 16:13:28 Catheter was removed 16:14:05 An injection in the Fem Art (right) was made through the SHEATH, FR6.5 PRELUDE 11CM FR 6.5. 16:14:11 HR=68 bpm, QQHR=370/63 mmhg, Resp=14 B/min, Pain=0, Donovan=10, Lyon=2 16:14:35 17 mL KENGREAL BOLUS given in lab by Trenton Granado RN via Peripheral IV. Ordered by Azar Cooper. 4 mcg/kg/min KENGREAL DRIP given in lab by Trenton Granado RN via Peripheral IV. Pump/Drip Flow = 137.76 ml/hr 16:15:00 using NaCl .9 with a concentration of 50 mg in 250 ml. Ordered by Azar Cooper. 16:17:10 ANGIOSEAL, FR6 VIP FR 6 placement in the Fem Art (right) 16:18:32 Case End 16:19:10 HR=68 bpm, WIND=741/59 mmhg, Resp=13 B/min, Pain=0, Donovan=10, Lyon=2 Assessment: Final Case, HR=77 BPM, GLOT=190/80 mmhg, Chest Pain=0, Edema=None, Color=Normal, Sk in = Warm, Dry 16:20:33 Neurological: State=Alert, Ox3, COLINDRES Respiration: Resp=18 B/min, SpO2=96 % 16:20:38 Catheter(s) removed without difficulty 16:20:42 Sterile dressing applied to site 16:20:43 No case complications noted. 16:20:45 Cine recording checked. 16:20:46 Bedside Report will be given. 16:20:52 Implantable Device card placed in patient's chart. 16:20:56 A Left Heart Cath was performed. 16:24:11 HR=63 bpm, NIBP=99/58 mmhg, Resp=21 B/min, Pain=0, Odnovan=10, Lyon=2 16:29:10 HR=69 bpm, YESX=430/55 mmhg, Resp=16 B/min 16:30:10 180 mg BRILLINTA given in lab by Trenton Granado, RN in Per mouth via Oral. Ordered by Azar Cooper. 16:34:11 HR=64 bpm, WHCR=987/63 mmhg, Resp=12 B/min 16:39:10 HR=65 bpm, HNAI=458/63 mmhg, Resp=16 B/min 16:45:24 Patient moved to [facility] End Study - Contrast Media Used In Study Contrast Total Opened (mL) Total Used (mL) Total Wasted (mL) Omnipaque 205 205 0 End Study - Maximum Contrast Load Max Contrast Load (mL) 382.7 End Study - Radiation Exposure Fluoro Time (minutes) 16.4 End Study - Sheaths Sheaths Pulled By Sheath Hold Time (min) Azar Cooper End Study - Patient Disposition Complications Transferred To Interventional Outcome No Critical Care Bed successful
[2017-06-24] MEDS ORDERED: HEPARIN SODIUM - IV 10,000 UNITS/10 ML VIAL ONE (17:28)
[2017-06-24] MEDS ORDERED: CANGRELOR 50,000 MCG/250 ML NS IV ONE ×2 (17:30)
[2017-06-24] MEDS ORDERED: ASPIRIN EC 81 MG TABEC PO ONE (17:30)
--- NOTE | 2017-06-24 17:34 | MA ---
cc: Azar Cooper MD DATE: 06/24/2017 INDICATIONS: Acute coronary syndrome. ST-elevation myocardial infarction. Class IV angina. PROCEDURE PERFORMED: 1. Retrograde left heart catheterization with left ventriculography and selective coronary angiography. 2. Angioplasty and stenting of the proximal and mid-right coronary artery. 3. Moderate sedation. ACCESS SITE: Right femoral artery. EQUIPMENT USED: 5-Turkmen pigtail catheter, 5-Turkmen JL4 and AR modified coronary artery catheters. AR1 guide, BMW wire, 2.5 x 15 mm balloon for predilatation, 3.0 x 38 mm Forsyth stent at 21 atmospheres with distal portion postdilated with 4.0 x 8 mm noncompliant balloon. 3.5 x 22 mm Forsyth, at 18 atmospheres to the proximal portion with both stents postdilated with 3.5 x 15 mm noncompliant balloon at 25 atmospheres (3.74 mm). MEDICATIONS: Versed IV, heparin IV, fentanyl IV, nitroglycerin IC, Cangrelor IV, Brilinta 180 mg p.o. CONTRAST: Omnipaque 205 cc. FINDINGS: There was evidence of thrombus in the mid-part of the stented segment (with ACT 301). 3.0 stent balloon was then inflated and there was no evidence of significant amount of thrombus in the mid-portion of the vessel. There was evidence of thrombus embolization into the distal part of the PDA. Vessel: RCA stenosis 90%, lesion length 40 mm. Pre MICHAEL 2, post MICHAEL 3, post stenosis 0. This was a Class III lesion. Post-intervention angiography with no evidence of vessel dissection. DIAGNOSES: 1. ST segment elevation myocardial infarction. 2. Coronary artery disease with a 90% stenosis of the right coronary artery with a large amount of thrombus. 3. Successful angioplasty and stenting of the right coronary artery. DISPOSITION: I recommend to continue long-term therapy with Brilinta and baby aspirin. I also recommend aggressive modification of his cardiac risk factors. He will followup with Dr. Hollins, his primary protection agent, in his office after discharged. Azar Cooper MD OQ/SB , 04:40 PM , 05:33 PM EMILY
[2017-06-24] MEDS ORDERED: MISC INFORMATION XX ONE (18:00)
[2017-06-24] MEDS ORDERED: SODIUM CHLOR 0.9% 1000 ML INJ 1,000 ML IV SCH (18:00)
[2017-06-24] MEDS ORDERED: HEPARIN SODIUM - IV 10,000 UNITS/10 ML VIAL IV PUSH PRN ×2 (19:30)
[2017-06-24] MEDS: HYDROCHLOROTHIAZIDE 12.5 MG CAP PO SCH (20:53)
[2017-06-24] MEDS: METOPROLOL TARTRATE 50 MG TAB PO SCH (20:53)
[2017-06-24] MEDS: LOSARTAN 50 MG TAB PO SCH (20:53)
[2017-06-24] MEDS ORDERED: ATORVASTATIN 10 MG TAB PO SCH (21:00)
[2017-06-24 22:11] LABS: AUTOMATED NEUTROPHIL # 7.2 TH/MM3 (1.8-7.7); BASOPHIL % 0.2 % (0.0-2.0); EOSINOPHIL % 0.5 % (0.0-4.0); HEMATOCRIT 35.3 % (39.0-51.0); HEMOGLOBIN 11.9 GM/DL (13.0-17.0); LYMPH % 12.5 % (9.0-44.0); LYMPHOCYTE # 1.1 TH/MM3 (1.0-4.8); MEAN CELL VOLUME 88.9 FL (80.0-100.0); MEAN CORPUSCULAR HEMOGLOBIN 29.8 PG (27.0-34.0); MEAN CORPUSCULAR HGB CONC 33.6 % (32.0-36.0); MEAN PLATELET VOLUME 8.1 FL (7.0-11.0); MONO % 5.5 % (0.0-8.0); MONOCYTE # 0.5 TH/MM3 (0-0.9); NEUT % 81.3 % (16.0-70.0); PLATELET COUNT 244 TH/MM3 (150-450); RED BLOOD COUNT 3.98 MIL/MM3 (4.50-5.90); RED CELL DISTRIBUTION WIDTH 13.7 % (11.6-17.2); WHITE BLOOD COUNT 8.9 TH/MM3 (4.0-11.0)
[2017-06-24] MEDS ORDERED: ALUMINUM/MAGNESIUM/SIMETH 30 ML CUP PO PRN (23:45)
[2017-06-24] MEDS: ACETAMINOPHEN 500 MG CPLT PO PRN (23:52)
[2017-06-25] VITALS (19 sets, daily range): BP systolic 94–117; BP diastolic 54–64; PULSE 57–91; RESP 18–20; TEMP 98–98.4; O2SAT 93–97
[2017-06-25 05:03] LABS: AUTOMATED NEUTROPHIL # 8.8 TH/MM3 (1.8-7.7); BASOPHIL % 0.2 % (0.0-2.0); EOSINOPHIL # 0.1 TH/MM3 (0-0.4); EOSINOPHIL % 0.6 % (0.0-4.0); HEMATOCRIT 36.9 % (39.0-51.0); HEMOGLOBIN 12.6 GM/DL (13.0-17.0); LYMPH % 8.7 % (9.0-44.0); LYMPHOCYTE # 0.9 TH/MM3 (1.0-4.8); MEAN CELL VOLUME 88.9 FL (80.0-100.0); MEAN CORPUSCULAR HEMOGLOBIN 30.3 PG (27.0-34.0); MEAN PLATELET VOLUME 8.2 FL (7.0-11.0); MONO % 5.3 % (0.0-8.0); MONOCYTE # 0.5 TH/MM3 (0-0.9); NEUT % 85.2 % (16.0-70.0); PLATELET COUNT 248 TH/MM3 (150-450); RED BLOOD COUNT 4.15 MIL/MM3 (4.50-5.90); RED CELL DISTRIBUTION WIDTH 13.7 % (11.6-17.2); WHITE BLOOD COUNT 10.3 TH/MM3 (4.0-11.0)
[2017-06-25 05:14] LABS: BICARBONATE 23.9 MEQ/L (21.0-32.0); CALCIUM 8.4 MG/DL (8.5-10.1); CREATININE 1.15 MG/DL (0.60-1.30)
[2017-06-25 05:29] LABS: CHOLESTEROL/ HDL RATIO 4.63 RATIO; HDL CHOLESTEROL 35.4 MG/DL (40.0-60.0)
[2017-06-25] MEDS ORDERED: LEVOTHYROXINE SODIUM 50 MCG TAB PO SCH (06:00)
--- NOTE | 2017-06-25 08:42 | MB ---
cc: Azar Cooper MD DATE: 06/24/2017 HISTORY OF PRESENT ILLNESS: Humberto is an 81-year-old white male, a patient of Dr. Hollins, with a previous history of hypertension, carotid disease and syncope. This morning, he was working outside and at noon, he developed severe substernal chest pressure. He took baby aspirin with some improvement of his pain. He presented to [facility]. He was found to have inferior ST elevation without reciprocal changes and was transferred to [facility] for emergent cardiac catheterization. PAST MEDICAL HISTORY: Positive for hypertension, obesity, carotid artery disease, syncope, sleep apnea, gastroesophageal reflux disease, prostatectomy, cholecystectomy. MEDICATIONS: Include metoprolol, Hyzaar, Prevacid, levothyroxine, aspirin. ALLERGIES: PENICILLIN AND CODEINE. SOCIAL HISTORY: The patient does not smoke, he does not drink alcohol. FAMILY HISTORY: Negative for coronary artery disease. Positive for hypertension in his mother. REVIEW OF SYSTEMS: Otherwise negative. PHYSICAL EXAMINATION: VITAL SIGNS: Blood pressure 127/73, pulse 80 and regular. HEENT: Negative. NECK: 2+ carotid upstrokes and brisk. LUNGS: Clear. HEART: Regular. No murmur, gallop or rub. ABDOMEN: Soft, no bruits. EXTREMITIES: Without edema. 2+ distal pulses. NEUROLOGIC: Exam grossly nonfocal. STUDY: EKG was reviewed and showed normal sinus rhythm and a 0.5-[address] elevations, with no significant reciprocal changes. LABORATORY DATA: Hemoglobin 14.3, potassium 3.4, creatinine 1.50. Troponin less than 0.02. CK 97. DIAGNOSIS: 1. Acute coronary syndrome. 2. Hypertension. 3. Carotid artery disease. 4. History of syncope. DISPOSITION: Mr. Paul will undergo emergent cardiac catheterization and coronary intervention. He understands the risks and benefits, and wishes to proceed. MD JULIANNE Nair/OZIEL , 04:52 PM , 05:12 PM MTDDave
[2017-06-25] MEDS ORDERED: TICAGRELOR 90 MG TAB PO SCH (09:00)
[2017-06-25] MEDS ORDERED: ASPIRIN EC 81 MG TABEC PO SCH (09:00)
[2017-06-25] MEDS ORDERED: PANTOPRAZOLE SOD 40 MG DELAYED RELEASE TAB PO SCH (09:00)
[2017-06-25] MEDS: LOSARTAN 50 MG TAB PO SCH (09:26)
[2017-06-25] MEDS: HYDROCHLOROTHIAZIDE 12.5 MG CAP PO SCH (09:26)
[2017-06-25] MEDS: METOPROLOL TARTRATE 50 MG TAB PO SCH (09:27)
[2017-06-25] MEDS: ACETAMINOPHEN 500 MG CPLT PO PRN (14:00)
--- NOTE | 2017-06-25 18:21 | PD.CARD.PN ---
Subjective Subjective Remarks No CP or SOB, feels well Objective Medications Current Medications Medications (Trade) Dose Ordered Sig/Dariel Route Start Time Stop Time Status Last Admin (NS Flush) 2 ml UNSCH PRN IVF 06/24/17 13:30 (Heparin Inj) 5,000 units UNSCH PRN IV PUSH 06/24/17 19:30 (Heparin Inj) 2,500 units UNSCH PRN IV PUSH 06/24/17 19:30 Heparin Sodium/ Dextrose 250 ml @ 10 mls/hr TITRATE PRN IV 06/24/17 13:30 (Ecotrin Ec) 81 mg DAILY PO 06/25/17 09:00 06/25/17 09:25 (Synthroid) 50 mcg DAILY@0600 PO 06/25/17 06:00 06/25/17 06:19 (Lopressor) 50 mg BID PO 06/24/17 21:00 06/25/17 09:27 (Protonix) 40 mg DAILY PO 06/25/17 09:00 06/25/17 09:26 (Microzide) 12.5 mg BID PO 06/24/17 21:00 06/25/17 09:26 (Brilinta) 90 mg BID PO 06/25/17 09:00 06/25/17 09:26 (Lipitor) 80 mg HS PO 06/24/17 21:00 (Cozaar) 50 mg BID PO 06/24/17 21:00 06/25/17 09:26 (Tylenol) 500 mg Q6H PRN PO 06/24/17 23:45 06/25/17 14:00 (Mag-Al Plus Susp Liq) 30 ml BID PRN PO 06/24/17 23:45 06/24/17 23:52 Vital Signs / I&O Vital Signs Date Time Temp Pulse Resp B/P (MAP) Pulse Ox O2 Delivery O2 Flow Rate FiO2 06/25/17 18:00 79 06/25/17 17:00 75 06/25/17 16:00 73 06/25/17 15:00 72 06/25/17 15:00 98.2 74 18 117/64 (81) 97 06/25/17 14:00 90 06/25/17 13:00 73 06/25/17 12:00 72 06/25/17 11:00 71 06/25/17 11:00 98.0 65 18 107/55 (72) 97 06/25/17 10:00 77 06/25/17 09:00 69 06/25/17 08:00 98.0 75 20 96/54 (68) 97 06/25/17 08:00 77 06/25/17 07:00 75 06/25/17 06:07 58 06/25/17 05:10 57 06/25/17 04:10 62 06/25/17 03:40 98.4 71 20 94/55 (68) 93 06/25/17 03:40 65 06/25/17 02:08 61 06/25/17 01:22 61 06/25/17 00:46 61 06/24/17 23:30 68 06/24/17 23:30 98.0 67 19 103/53 (70) 97 06/24/17 22:00 72 06/24/17 21:00 70 06/24/17 20:00 67 06/24/17 19:30 72 06/24/17 19:30 97.9 75 18 111/54 (73) 95 06/24/17 18:48 98.0 78 18 112/58 (76) 95 I/O 06/24/17 06/24/17 06/24/17 06/25/17 06/25/17 06/25/17 07:00 15:00 23:00 07:00 15:00 23:00 Intake Total 500 ml 480 ml 840 ml Output Total 400 ml Balance 500 ml 80 ml 840 ml Intake Oral 480 ml 840 ml IV Total 500 ml Output Urine Total 400 ml # Voids 6 # Bowel Movements 0 1 Physical Exam GENERAL: In NAD. SKIN: Warm and dry. HEAD: Normocephalic. EYES: No scleral icterus. No injection or drainage. NECK: Supple, trachea midline. No JVD or lymphadenopathy. CARDIOVASCULAR: Regular rate and rhythm without murmurs, gallops, or rubs. RESPIRATORY: Breath sounds equal bilaterally. No accessory muscle use. GASTROINTESTINAL: Abdomen soft, non-tender, nondistended. MUSCULOSKELETAL: No cyanosis, or edema. Groin stable. Laboratory Laboratory Tests Test 06/24/17 21:42 06/25/17 03:57 White Blood Count 8.9 TH/MM3 10.3 TH/MM3 Red Blood Count 3.98 MIL/MM3 4.15 MIL/MM3 Hemoglobin 11.9 GM/DL 12.6 GM/DL Hematocrit 35.3 % 36.9 % Mean Corpuscular Volume 88.9 FL 88.9 FL Mean Corpuscular Hemoglobin 29.8 PG 30.3 PG Mean Corpuscular Hemoglobin Concent 33.6 % 34.0 % Red Cell Distribution Width 13.7 % 13.7 % Platelet Count 244 TH/MM3 248 TH/MM3 Mean Platelet Volume 8.1 FL 8.2 FL Neutrophils (%) (Auto) 81.3 % 85.2 % Lymphocytes (%) (Auto) 12.5 % 8.7 % Monocytes (%) (Auto) 5.5 % 5.3 % Eosinophils (%) (Auto) 0.5 % 0.6 % Basophils (%) (Auto) 0.2 % 0.2 % Neutrophils # (Auto) 7.2 TH/MM3 8.8 TH/MM3 Lymphocytes # (Auto) 1.1 TH/MM3 0.9 TH/MM3 Monocytes # (Auto) 0.5 TH/MM3 0.5 TH/MM3 Eosinophils # (Auto) 0.0 TH/MM3 0.1 TH/MM3 Basophils # (Auto) 0.0 TH/MM3 0.0 TH/MM3 CBC Comment DIFF FINAL DIFF FINAL Differential Comment Activated Partial Thromboplast Time 27.9 SEC Blood Urea Nitrogen 16 MG/DL Creatinine 1.15 MG/DL Random Glucose 120 MG/DL Calcium Level 8.4 MG/DL Sodium Level 142 MEQ/L Potassium Level 3.7 MEQ/L Chloride Level 106 MEQ/L Carbon Dioxide Level 23.9 MEQ/L Anion Gap 12 MEQ/L Estimat Glomerular Filtration Rate 61 ML/MIN Total Creatine Kinase 1213 U/L Creatine Kinase MB 116.9 NG/ML Creatine Kinase MB % 9.6 % Triglycerides Level 103 MG/DL Cholesterol Level 164 MG/DL LDL Cholesterol 108 MG/DL HDL Cholesterol 35.4 MG/DL Cholesterol/HDL Ratio 4.63 RATIO Assessment and Plan Problem List: (1) Acute coronary syndrome ICD Codes: I24.9 - Acute ischemic heart disease, unspecified (2) CAD (coronary artery disease) ICD Codes: I25.10 - Atherosclerotic heart disease of [place] coronary artery without angina pectoris (3) Stented coronary artery ICD Codes: Z95.5 - Presence of coronary angioplasty implant and graft (4) Ischemic cardiomyopathy ICD Codes: I25.5 - Ischemic cardiomyopathy Assessment and Plan No recurrent angina. EKG w ST segments normalized and small Q waves. Groin stable. Pt given prescription for Brilinta, baby ASA, metoprolol and atorvastatin. Continue Brilinta and baby ASA for at least a year. DC home. Will f/u w Dr. Hollins after discharge. Azar Cooper MD June 25, 2017 18:21
--- NOTE | 2017-06-25 19:31 | EKG ---
Date Performed: 06/24/2017 Time Performed: 13:15:35 PTAGE: 81 years EKG: Sinus rhythm WITH VENTRICULAR PREMATURE COMPLEXES Can not exclude inferior injury, which is new when compared to Previous tracing. Small T waves inferiorly indicationg infarction, which are Progressed fromthe old t racing. Clinical corrolation is needed. Abnormal ECG PREVIOUS TRACING : 04/06/2013 02.58 DOCTOR: Jerome Parsons Interpretating Date/Time 06/25/2017 19:31:06
--- NOTE | 2017-06-25 19:34 | EKG ---
Date Performed: 06/24/2017 Time Performed: 20:48:58 PTAGE: 81 years EKG: Sinus rhythm with borderline 1st degree A-V block Possible inferior infarct - age undetermined Acute injury patte rn is now resolved when compared to previous Tracing. Abnormal ECG PREVIOUS TRACING : 06/24/2017 13.15.35 DOCTOR: Jerome Parsons Interpretating Date/Time 06/25/2017 19:33:03
--- NOTE | 2017-06-25 19:35 | EKG ---
Date Performed: 06/25/2017 Time Performed: 05:44:18 PTAGE: 81 years EKG: Sinus rhythm with 1st degree A-V block Leftward axis Inferior infarct - age undetermined Since the PREVIOUS TRACING , no significant change noted Abnormal ECG PREVIOUS TRACING 06/24/2017 @ 20.48.58 DOCTOR: Jerome Parsons Interpretating Date/Time 06/25/2017 19:33:07
== END 2017-06-25 18:55 | disposition home or self-care (01) | DRG 247 ==
LOC: PHED 13:08 → PHEDA 13:31 → HDIC 17:41 → HCPC 18:10
PROVIDERS: ADMIT Internal Medicine Interventional Cardiology; ATTEND Internal Medicine Interventional Cardiology
PROC: 027035Z Dilation of Coronary Artery, One Artery with Two Drug-eluting Intraluminal Devices, Percutaneous Approach (ICD-10-PCS; principal; 2017-06-24)
PROC: 4A023N7 Measurement of Cardiac Sampling and Pressure, Left Heart, Percutaneous Approach (ICD-10-PCS; 2017-06-24)
PROC: B2111ZZ Fluoroscopy of Multiple Coronary Arteries using Low Osmolar Contrast (ICD-10-PCS; 2017-06-24)
PROC: B2151ZZ Fluoroscopy of Left Heart using Low Osmolar Contrast (ICD-10-PCS; 2017-06-24)
DX: I21.9 Acute myocardial infarction, unspecified (principal); I65.29 Occlusion and stenosis of unspecified carotid artery; I10 Essential (primary) hypertension; K21.9 Gastro-esophageal reflux disease without esophagitis; H91.90 Unspecified hearing loss, unspecified ear; G47.30 Sleep apnea, unspecified; I24.9 Acute ischemic heart disease, unspecified; I25.5 Ischemic cardiomyopathy; I25.110 Atherosclerotic heart disease of native coronary artery with unstable angina pectoris; Z79.82 Long term (current) use of aspirin; Z86.73 Personal history of transient ischemic attack (TIA), and cerebral infarction without residual deficits; Z82.49 Family history of ischemic heart disease and other diseases of the circulatory system
CPT/HCPCS: 80048; 80053; 80061; 82550; 82552; 83735; 84484; 85002; 85025; 85610; 85730; 92928; 93005; 93458; 99152; 99153; C1725; C1760; C1769; C1874; C1887; C1893; C9460; G0269; J1644; J2250; J3010; J7030; J7040; Q9967